=== PATIENT | male | born 1965 | race American Indian/Alaskan Native ===

== ENCOUNTER 2017-09-08 01:47 | Emergency (ER) | payer SELFPAY ==
[2017-09-08 02:07] VITALS: BP 150/98
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
[2017-09-08] MEDS ORDERED: NORCO 5/325 PO ONE (06:02)
--- NOTE | 2017-09-08 11:36 | XRay Report ---
FINAL REPORT EXAM: XRAY HAND 2 VIEWS RIGHT HISTORY: hand injury, swollen TECHNIQUE: Three views of the right hand were submitted. FINDINGS: There is an acute transverse impacted fracture through distal neck of the 5th metacarpal with overlying dorsal soft tissue swelling. There are no additional fractures. The wrist joint appears intact. IMPRESSION: Acute nondisplaced transverse boxer's type fracture of the distal end of the 5th metacarpal with dorsal soft tissue swelling.
== END 2017-09-08 06:30 | disposition home or self-care (01) ==
LOC: ED 01:47
DX: S62.396A Other fracture of fifth metacarpal bone, right hand, initial encounter for closed fracture (principal); F17.200 Nicotine dependence, unspecified, uncomplicated; Y04.8XXA Assault by other bodily force, initial encounter; Y93.89 Activity, other specified; Y92.89 Other specified places as the place of occurrence of the external cause; Y99.8 Other external cause status
CPT/HCPCS: 99283